=== PATIENT | female | born 1970 | race Caucasian/White ===

== ENCOUNTER 2017-02-02 07:17 | Day surgery (SDC) | payer OTHER ==
[~2017-02-02] VITALS: Ht 175.3 cm; Wt 65.8 kg
[~2017-02-02 07:17] MED LIST: 0.9% Sodium Chloride 1,000 ML IV SCH; ALPR0.5T8 PO; HYDR-3825 PO; Sodium Chloride LOK Flush 10 mL Syringe IV PRN; TIZA4CAP8 PO; fentaNYL-PF 50 mCg/mL 2 mL Inj IVPUSH PRN
[2017-02-02 07:40] VITALS: BP 108/75; PULSE 74; RESP 14; O2SAT 96
[2017-02-02 08:16] VITALS: BP 98/59; PULSE 62; RESP 14; O2SAT 96
[2017-02-02 08:28] VITALS: BP 93/52; PULSE 81; RESP 16; O2SAT 98
[2017-02-02 08:33] VITALS: BP 109/72; PULSE 72; RESP 14; O2SAT 100
--- NOTE | 2017-02-02 13:46 | ENDO ---
[address] [address] ENDOSCOPY PROCEDURE PATIENT: WALTER PEREZ : 1970 MR#: [id number] ADMIT: 02/02/2017 JOB ID: [id number] OPERATION: Colonoscopy with biopsy. PREOPERATIVE DIAGNOSIS(ES): History of tubular adenoma polyps. POSTOPERATIVE DIAGNOSIS(ES): A 2 mm rectal polyp removed by cold biopsy forceps. ANESTHESIA: 1. Fentanyl 125 mcg. 2. Versed 6 mg IV administered. COMPLICATIONS: None. ESTIMATED BLOOD LOSS: Minimal. DESCRIPTION OF PROCEDURE: After the risks and benefits were explained to the patient, informed was obtained. After anesthesia was administered, the colonoscope was then inserted from the rectum to cecum and the mucosa carefully examined. Prep of the patient was excellent. After the procedure was done, the scope was withdrawn and the procedure terminated. FINDINGS: Upon inspection of the anus, no masses, hemorrhoids, ulcers, or fissures that were seen. Throughout the entire examination the patient experienced a tremendous amount of pain. A rectal polyp was seen, which was removed by cold biopsy forceps 2 mm. IMPRESSION: 1. A 2 mm rectal polyp, removed by cold biopsy forceps. 2. The patient experienced a tremendous amount of pain during the procedure. RECOMMENDATIONS: Await pathology results. Repeat colonoscopy in five years with anesthesia given pain during the procedure.
--- NOTE | 2017-02-03 15:06 | PATH ---
SURGICAL PATHOLOGY Attending Physician:Jaswinder Handy MD CASE STATUS: Signed Out PATIENT NAME: WALTER PEREZ PID: [id number] : 1970 DATE COLLECTED:02/02/2017 16:43 SPECIMEN: Rectum, Biopsy CLINICAL HISTORY: 1. RECTAL POLYP X1 FINAL DIAGNOSIS: 1.RECTUM, POLYP, BIOPSY: HYPERPLASTIC POLYP. ICD10 CODE K62.1 GROSS DESCRIPTION: The specimen is received in one formalin filled container labeled with the patient's name, sublabeled "rectal polyp" and consists of 3 portions of tissue which aggregate to 0.3 x 0.3 x 0.2 CM. The specimen is entirely submitted in one cassette. 02/02/2017 [facility] MICRO DESCRIPTION: See diagnosis. ICD-9 CODES: CPT CODES: 1: 93755 Electronically Signed Out Gabbie Leal MD [facility] Pathology [facility] [address], [place] [address] Technical component performed at [facility], [address] [place] [address] [address], [place], [address]
== END 2017-02-02 23:59 | disposition home or self-care (01) ==
LOC: END 07:17
PROVIDERS: ATTEND Internal Medicine Gastroenterology
DX: Z12.11 Encounter for screening for malignant neoplasm of colon (principal); Z86.010 Personal history of colon polyps; K62.1 Rectal polyp; F32.9 Major depressive disorder, single episode, unspecified; F41.9 Anxiety disorder, unspecified; M54.9 Dorsalgia, unspecified; M79.7 Fibromyalgia; G25.81 Restless legs syndrome
CPT/HCPCS: 45380; 88305; G0500; J7030